=== PATIENT | male | born 1980 ===

== ENCOUNTER 2017-01-01 15:58 | Emergency (ER) | payer OTHER ==
[2017-01-01 16:11] VITALS: BP 132/84; PULSE 92; RESP 18; TEMP 99; O2SAT 98
[2017-01-01] MEDS ORDERED: Sodium Chloride 0.9% 1,000 ML IV STA (16:30)
[2017-01-01] MEDS ORDERED: Iohexol 300 100 ML IJ ONE (16:33)
[2017-01-01] MEDS ORDERED: Sodium Chloride 0.9% 50 ML IV ONE (16:34)
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
[2017-01-01 17:17] LABS: BASO # 0.1 K/uL (0.0-0.2); BASO % 1.1 % (0.0-2.0); EOS # 0.1 K/uL (0.0-0.7); HEMATOCRIT 42.9 % (35.0-51.0); LYMPH # 3.7 K/uL (1.0-4.3); LYMPH % 34.1 % (20.0-40.0); MEAN CELL VOLUME 74.6 fl (80.0-94.0); MEAN CORPUSCULAR HGB CONC 32.1 g/dL (33.0-37.0); MEAN PLATELET VOLUME 8.3 fl (7.2-11.7); MONO # 0.8 K/uL (0.0-0.8); NEUT # 6.2 K/uL (1.8-7.0); NEUT % 56.8 % (50.0-75.0); NRBC % 0.1 % (0.0-0.0); RED CELL DISTRIBUTION WIDTH 15.3 % (11.5-14.5); WHITE BLOOD COUNT 10.9 K/uL (4.8-10.8)
[2017-01-01 17:18] LABS: VENOUS BLOOD GAS BASE EXCESS 1.5 mmol/L (0.0-2.0); VENOUS BLOOD GAS PCO2 46 mmHg (40-60); VENOUS BLOOD PH 7.38 (7.32-7.43)
[2017-01-01 17:30] LABS: ALB/GLOB RATIO 1.4 (1.0-2.1); ALKALINE PHOSPHATASE 65 U/L (38-126); ALT/SGPT 58 U/L (21-72); AST/SGOT 56 U/L (17-59); BILIRUBIN,TOTAL 0.3 mg/dl (0.2-1.3); BLOOD UREA NITROGEN 14 mg/dl (9-20); CALCIUM 9.3 mg/dL (8.4-10.2); CARBON DIOXIDE 26 mmol/L (22-30); CHLORIDE 105 mmol/L (98-107); GFR AFRICAN-AMERICAN > 60; GLUCOSE,RANDOM 85 mg/dL (75-110); POTASSIUM 4.3 MMOL/L (3.6-5.0); SODIUM 141 mmol/l (132-148); TOTAL PROTEIN 7.7 G/DL (6.3-8.2)
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
--- NOTE | 2017-01-01 17:45 | CT ---
PROCEDURE: CT Cervical Spine without contrast HISTORY: [facility] COMPARISON: None available. TECHNIQUE: Axial computed tomography images were obtained of the cervical spine without the use of intravenous contrast. Coronal and sagittal reformatted images were created and reviewed. Radiation dose: Total exam DLP = 410.66 mGy-cm. This CT exam was performed using one or more of the following dose reduction techniques: Automated exposure control, adjustment of the mA and/or kV according to patient size, and/or use of iterative reconstruction technique. FINDINGS: VERTEBRAE: There is straightening of the cervical spine with loss of normal cervical lordosis. Vertebral alignment is normal. Vertebral height is maintained. There is no acute fracture or spondylolisthesis. The craniocervical junction is normal. The atlantoaxial joint is pacsNo fracture. Normal alignment. No destructive bony lesion. DISCS/SPINAL CANAL/NEURAL FORAMINA: There is mild multilevel degenerative disc disease, worse at C5-6 with a central disc protrusion and mild left neural foraminal stenosis. No spinal canal stenosis. PARASPINAL SOFT TISSUES: The paraspinous soft tissues are normal. No prevertebral soft tissue thickening. OTHER FINDINGS: No apical pneumothorax. IMPRESSION: No acute fracture or traumatic anterior listhesis. Straightening of the cervical spine may be positional or related to muscle spasm.
[2017-01-01 17:46] LABS: PARTIAL THROMBOPLASTIN TIME 38.7 Seconds (25.6-37.1)
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
== END 2017-01-01 18:41 | disposition left against medical advice (07) ==
LOC: H.ER 15:58
DX: S09.90XA Unspecified injury of head, initial encounter (principal); S39.93XA Unspecified injury of pelvis, initial encounter; Y92.410 Unspecified street and highway as the place of occurrence of the external cause
CPT/HCPCS: 70450; 71260; 72125; 74177; 80053; 82803; 85025; 85610; 85730; 86850; 86900; 93975; 96360; 99285; J2270; J7040; Q9967

== ENCOUNTER 2017-01-04 15:10 | Emergency (ER) | payer OTHER ==
[2017-01-04 15:25] VITALS: BP 118/65; PULSE 90; RESP 20; TEMP 98.2; O2SAT 98
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
== END 2017-01-04 17:48 | disposition left against medical advice (07) ==
LOC: H.ER 15:10
DX: N50.819 Testicular pain, unspecified (principal)
CPT/HCPCS: 96372; 99281; J2270